=== PATIENT | female | born 1975 | race Caucasian/White ===

== ENCOUNTER 2021-01-18 19:02 | Emergency (ER) | payer OTHER ==
[~2021-01-18] VITALS: Ht 167.6 cm; Wt 68.0 kg
[2021-01-18 19:30] VITALS: BP 144/70
[2021-01-18] MEDS ORDERED: BENZ-13 PO (19:53)
[2021-01-18] MEDS ORDERED: GUAI1TBM19 PO (19:53)
[2021-01-18] MEDS ORDERED: DEXAMETHASONE SOLN 5 MG/5 ML UDC PO ONE (20:00)
[2021-01-18] MEDS ORDERED: PENICILLIN G BENZATHINE 2.4 MMU/4 ML ML IM ONE ×2 (20:00→20:12)
[2021-01-18] MEDS ORDERED: DEXAMETHASONE 4 MG TABLET ONE (20:12)
== END 2021-01-18 20:42 | disposition home or self-care (01) ==
LOC: ER 19:06
DX: J02.0 Streptococcal pharyngitis (principal); Z60.2 Problems related to living alone; Z79.899 Other long term (current) drug therapy
CPT/HCPCS: 96372; 99283; J0558; J8540